=== PATIENT | female | born 1985 | race Caucasian/White ===

== ENCOUNTER 2021-03-25 12:16 | Emergency (ER) | payer MEDICAID ==
[~2021-03-25] VITALS: Ht 172.7 cm; Wt 77.9 kg
[2021-03-25 12:23] VITALS: BP 124/85
[2021-03-25] MEDS ORDERED: dexamethasone sod phosphate 10mg/ml inj PO STA (13:34)
[2021-03-25] MEDS ORDERED: PENI250T2 PO (13:58)
[2021-03-25] MEDS ORDERED: NAPR-56 PO (13:58)
[2021-03-25] MEDS ORDERED: LIDO20SO16 PO (13:58)
== END 2021-03-25 14:18 | disposition home or self-care (01) ==
LOC: ER 12:17
DX: J02.0 Streptococcal pharyngitis (principal); Z79.899 Other long term (current) drug therapy; Z79.2 Long term (current) use of antibiotics
CPT/HCPCS: 71046; 87880; 99284; J1100